=== PATIENT | female | born 1995 | race Caucasian/White ===

== ENCOUNTER 2017-04-01 20:49 | Emergency (ER) | payer OTHER ==
[~2017-04-01] VITALS: Ht 160 cm; Wt 74.8 kg
--- NOTE | 2017-04-01 22:10 | NUR ---
Patient discharged to home in stable conditon. Written and verbal after care instructions given. Patient verbalizes understanding of instructions.
[2017-04-02 00:32] VITALS: BP 117/65
== END 2017-04-01 22:10 | disposition home or self-care (01) ==
LOC: ER 20:49
DX: N91.2 Amenorrhea, unspecified (principal)
CPT/HCPCS: 36415; 84703; 99283; A4663